=== PATIENT | female | born 1960 | race Asian ===

== ENCOUNTER 2017-07-19 10:00 | Emergency (ER) | payer MEDICAID ==
[2017-07-19 10:42] LABS: ADD UMIC YES; UR AMORPHOUS CRYSTAL FEW /HPF (NONE SEEN); UR ASCORBIC ACID NEGATIVE (NEGATIVE); UR BACTERIA FEW /HPF (NONE SEEN); UR BILIRUBIN (Dip) NEGATIVE (NEGATIVE); UR BLOOD (Dip) 3+ mg/dL (NEGATIVE); UR CLARITY SLIGHTLY CLOUDY (CLEAR); UR COLOR RED (YELLOW); UR GLUCOSE (Dip) 1+ mg/dL (NEGATIVE); UR KETONES (Dip) NEGATIVE (NEGATIVE); UR LEUKOCYTE ESTERASE (Dip) 1+ Leu/ul (NEGATIVE); UR NITRITE (Dip) NEGATIVE (NEGATIVE); UR RBC > 182 /HPF (0-5); UR SPECIFIC GRAVITY (Dip) 1.005 (1.003-1.030); UR TOTAL PROTEIN (Dip) 1+ mg/dl (NEGATIVE); UR UROBILINOGEN (Dip) NEGATIVE (NEGATIVE); UR WBC 102 /HPF (0-5)
[2017-07-19] MEDS ORDERED: PHENAZOPYRIDINE 100 MG TAB PO (11:00)
[2017-07-19] MEDS ORDERED: CEPHALEXIN 500 MG CAP PO (11:00)
== END 2017-07-19 11:25 | disposition home or self-care (01) ==
LOC: FTE 10:00
DX: N30.01 Acute cystitis with hematuria (principal)
CPT/HCPCS: 36415; 81001; 99283